=== PATIENT | male | born 1960 | race Caucasian/White ===

== ENCOUNTER 2022-08-09 16:36 | Outpatient (CLI) | payer BC | END 2022-08-09 16:37 | disposition home or self-care (01) | LOC: SCSRAD 16:36 | PROVIDERS: ATTEND Family Medicine | DX: M47.22 Other spondylosis with radiculopathy, cervical region (principal); M50.11 Cervical disc disorder with radiculopathy, high cervical region | CPT/HCPCS: 72040 ==